=== PATIENT | female | born 2000 | race Hispanic/Latino ===

== ENCOUNTER 2019-02-01 15:48 | Emergency (ER) | payer SELFPAY ==
[2019-02-01 15:57] VITALS: BP 129/75
[2019-02-01] MEDS ORDERED: MOTRIN PO ONE (17:31)
[2019-02-01] MEDS ORDERED: DECADRON IM ONE (17:32)
--- NOTE | 2019-02-01 17:50 | Emergency Department Report ---
ED ENT HPI - General Chief complaint: Sore Throat Stated complaint: JJ/SWOLLEN TONSILS Time Seen by Provider: 02/01/19 17:31 Source: patient Mode of arrival: Ambulatory Limitations: No Limitations - History of Present Illness Initial comments: Pt is a 19 y/o w/f with hx or recurring strep who presents for sore throat and noc fever x 3 days pt is tolerating po intake, there is no temp max reported from home temp is 98.4 in triage today, pt has secondary concern for refill for zoloft pt denies SI or HI MD complaint: sore throat Onset/Timin -: days(s) Location: throat Severity: moderate Severity scale (0 -10): 5 Quality: burning, sharp Improves with: none Worsens with: swallowing Associated Symptoms: fever, pain with swallowing, sore throat - Related Data Previous Rx's Medication Instructions Recorded Last Taken Type Amoxicillin/Potassium Clav 1 each PO BID 10 Days #20 tablet 02/01/19 Unknown Rx [Augmentin 875-125 Tablet] Benzocaine/Mentho [Cepacol X 1 each MM Q2H PRN #3 packet 02/01/19 Unknown Rx Strength] Ibuprofen [Motrin 800 MG tab] 800 mg PO Q8HR PRN #30 tablet 02/01/19 Unknown Rx dexAMETHasone [Decadron] 4 mg PO BID 3 Days #6 tablet 02/01/19 Unknown Rx Allergies Allergy/AdvReac Type Severity Reaction Status Date / Time No Known Allergies Allergy Unverified 02/01/19 15:51 ED Dental HPI - General Chief complaint: Sore Throat Stated complaint: JJ/SWOLLEN TONSILS Time Seen by Provider: 02/01/19 17:31 Source: patient Mode of arrival: Ambulatory Limitations: No Limitations - Related Data Previous Rx's Medication Instructions Recorded Last Taken Type Amoxicillin/Potassium Clav 1 each PO BID 10 Days #20 tablet 02/01/19 Unknown Rx [Augmentin 875-125 Tablet] Benzocaine/Mentho [Cepacol X 1 each MM Q2H PRN #3 packet 02/01/19 Unknown Rx Strength] Ibuprofen [Motrin 800 MG tab] 800 mg PO Q8HR PRN #30 tablet 02/01/19 Unknown Rx dexAMETHasone [Decadron] 4 mg PO BID 3 Days #6 tablet 02/01/19 Unknown Rx Allergies Allergy/AdvReac Type Severity Reaction Status Date / Time No Known Allergies Allergy Unverified 02/01/19 15:51 ED Review of Systems ROS: Stated complaint: JJ/SWOLLEN TONSILS Other details as noted in HPI Constitutional: fever. denies: chills Eyes: denies: eye pain, eye discharge, vision change ENT: throat pain Respiratory: denies: cough, shortness of breath, wheezing Cardiovascular: denies: chest pain, palpitations Endocrine: no symptoms reported Gastrointestinal: denies: abdominal pain, nausea, diarrhea Genitourinary: denies: urgency, dysuria, discharge Musculoskeletal: denies: back pain, joint swelling, arthralgia Skin: denies: rash, lesions Neurological: denies: headache, weakness, paresthesias Psychiatric: denies: anxiety, depression Hematological/Lymphatic: denies: easy bleeding, easy bruising ED Past Medical Hx - Past Medical History Previous Medical History?: Yes Hx Headaches / Migraines: Yes - Surgical History Past Surgical History?: No - Social History Smoking Status: Current Every Day Smoker Substance Use Type: Alcohol, Marijuana, Prescribed - Medications Home Medications: Home Medications Medication Instructions Recorded Confirmed Last Taken Type Amoxicillin/Potassium Clav 1 each PO BID 10 Days #20 tablet 02/01/19 Unknown Rx [Augmentin 875-125 Tablet] Benzocaine/Mentho [Cepacol X 1 each MM Q2H PRN #3 packet 02/01/19 Unknown Rx Strength] Ibuprofen [Motrin 800 MG tab] 800 mg PO Q8HR PRN #30 tablet 02/01/19 Unknown Rx dexAMETHasone [Decadron] 4 mg PO BID 3 Days #6 tablet 02/01/19 Unknown Rx ED Physical Exam - General Limitations: No Limitations General appearance: alert, in no apparent distress - Head Head exam: Present: atraumatic, normocephalic - Eye Eye exam: Present: normal appearance, PERRL, EOMI Pupils: Present: normal accommodation - ENT ENT exam: Present: mucous membranes moist, TM's normal bilaterally, normal external ear exam, other (bilat maxillary sinus tenderness to palpation no swelling no erythema ). Absent: normal orophraynx - Expanded ENT Exam Expanded Ear exam: Present: normal external inspection TM/Canal exam: Canal Tenderness: Right TM, Left TM Mouth exam: Absent: trismus Throat exam: Positive: tonsillar erythema, tonsillomegaly, tonsillar exudate, other (uvula midline no stridor mild white tonsilar exudate no peritonsilar abscess no wheezing ). Negative: R peritonsillar mass, L peritonsillar mass - Neck Neck exam: Present: normal inspection, tenderness (mild lymph tendern), full ROM, lymphadenopathy. Absent: meningismus, thyromegaly - Expanded Neck Exam Expanded Neck exam: Present: tenderness (no posterior vertebral point tenderness ). Absent: midline deformity, anterior neck swelling, thyroid mass, carotid bruit, tracheal deviation - Respiratory Respiratory exam: Present: normal lung sounds bilaterally. Absent: respiratory distress, wheezes, stridor, chest wall tenderness - Cardiovascular Cardiovascular Exam: Present: regular rate, normal rhythm, normal heart sounds. Absent: systolic murmur, diastolic murmur, rubs, gallop - GI/Abdominal GI/Abdominal exam: Present: soft, normal bowel sounds. Absent: distended, tenderness, guarding, rebound, rigid, bruit, hernia - Extremities Exam Extremities exam: Present: normal inspection, full ROM, normal capillary refill - Back Exam Back exam: Present: normal inspection, full ROM. Absent: tenderness, rash noted - Neurological Exam Neurological exam: Present: alert, oriented X3, CN II-XII intact, normal gait, reflexes normal - Psychiatric Psychiatric exam: Present: normal affect, normal mood - Skin Skin exam: Present: warm, dry, intact, normal color. Absent: rash ED Course Vital Signs 02/01/19 15:55 Temperature 98.4 F Pulse Rate 122 H Respiratory 20 Rate Blood Pressure 129/75 O2 Sat by Pulse 99 Oximetry ED Medical Decision Making - Medical Decision Making This is pharyngitis recurring plan: augmentin , ibuprofen, cepachol, follow up with psychiatry in 2 days for refill for zoloft pt denies hi no si no depression at this time. pt symptoms improved dc'd to home in stable condition at this time. Critical care attestation.: If time is entered above; I have spent that time in minutes in the direct care of this critically ill patient, excluding procedure time. ED Disposition Clinical Impression: Pharyngitis Qualifiers: Pharyngitis/tonsillitis etiology: unspecified etiology Qualified Code(s): J02.9 - Acute pharyngitis, unspecified Disposition: DC-01 TO HOME OR SELFCARE Is pt being admited?: No Does the pt Need Aspirin: No Condition: Stable Instructions: Pharyngitis (ED) Prescriptions: Amoxicillin/Potassium Clav [Augmentin 875-125 Tablet] 1 each PO BID 10 Days #20 tablet Benzocaine/Mentho [Cepacol X Strength] 1 each MM Q2H PRN #3 packet PRN Reason: Throat Pain dexAMETHasone [Decadron] 4 mg PO BID 3 Days #6 tablet Ibuprofen [Motrin 800 MG tab] 800 mg PO Q8HR PRN #30 tablet PRN Reason: pain fever [facility] [[facility] Care Provider[facility] - 3-5 Days TACOS FREGOSO MD [Staff Physician] - 3-5 Days [facility] [Outside] - 2-3 Days Forms: Work/School Release Form(ED) Time of Disposition: 18:09
[2019-02-01] MEDS ORDERED: AMOXICILLIN ORAL LIQD PO ONE (18:33)
== END 2019-02-01 18:16 | disposition home or self-care (01) ==
LOC: ED 15:48
DX: J02.9 Acute pharyngitis, unspecified (principal); F17.200 Nicotine dependence, unspecified, uncomplicated; F12.10 Cannabis abuse, uncomplicated; G43.909 Migraine, unspecified, not intractable, without status migrainosus
CPT/HCPCS: 96372; 99282; J1100

== ENCOUNTER 2020-03-14 17:23 | Emergency (ER) | payer SELFPAY ==
--- NOTE | 2020-03-14 21:31 | Emergency Department Report ---
- General Chief Complaint: Allergic Reaction Stated Complaint: SWOLLEN THROAT Time Seen by Provider: 03/14/20 21:15 Source: patient Mode of arrival: Ambulatory Limitations: No Limitations - History of Present Illness Initial Comments: Lamar is a 20-year-old female with a history of migraine headache and thyroid disease who presents with lip swelling. Left side of lip. No history of trauma. She denies use she does smoke tobacco. She denies use of illicit drugs. -: Gradual, days(s) (Several days) Location: other (Left lip swelling) Associated Symptoms: other (Left lip swelling) - Related Data Previous Rx's Medication Instructions Recorded Last Taken Type Amoxicillin/Potassium Clav 1 each PO BID 10 Days #20 tablet 02/01/19 Unknown Rx [Augmentin 875-125 Tablet] Benzocaine/Mentho [Cepacol X 1 each MM Q2H PRN #3 packet 02/01/19 Unknown Rx Strength] Ibuprofen [Motrin 800 MG tab] 800 mg PO Q8HR PRN #30 tablet 02/01/19 Unknown Rx dexAMETHasone [Decadron] 4 mg PO BID 3 Days #6 tablet 02/01/19 Unknown Rx Sulfamethoxazole/Trimethoprim 1 each PO BID 7 Days #14 tablet 03/14/20 Unknown Rx [Bactrim 400-80 mg Tablet] Allergies Allergy/AdvReac Type Severity Reaction Status Date / Time No Known Allergies Allergy Unverified 02/01/19 15:51 ED Review of Systems ROS: Stated complaint: SWOLLEN THROAT Other details as noted in HPI Constitutional: denies: fever, malaise Respiratory: denies: cough, shortness of breath Gastrointestinal: denies: abdominal pain, nausea, vomiting Skin: rash, lesions ED Past Medical Hx - Past Medical History Previous Medical History?: Yes Hx Headaches / Migraines: Yes Additional medical history: hypothyroid - Surgical History Past Surgical History?: No - Social History Smoking Status: Current Every Day Smoker Substance Use Type: Alcohol, Marijuana, Methamphetamines - Medications Home Medications: Home Medications Medication Instructions Recorded Confirmed Last Taken Type Amoxicillin/Potassium Clav 1 each PO BID 10 Days #20 tablet 02/01/19 Unknown Rx [Augmentin 875-125 Tablet] Benzocaine/Mentho [Cepacol X 1 each MM Q2H PRN #3 packet 02/01/19 Unknown Rx Strength] Ibuprofen [Motrin 800 MG tab] 800 mg PO Q8HR PRN #30 tablet 02/01/19 Unknown Rx dexAMETHasone [Decadron] 4 mg PO BID 3 Days #6 tablet 02/01/19 Unknown Rx Sulfamethoxazole/Trimethoprim 1 each PO BID 7 Days #14 tablet 03/14/20 Unknown Rx [Bactrim 400-80 mg Tablet] ED Physical Exam - General Limitations: No Limitations General appearance: alert, in no apparent distress - Head Head exam: Present: atraumatic, normocephalic - Eye Eye exam: Absent: scleral icterus, conjunctival injection - ENT ENT exam: Present: other (Left lower lobe: Slightly edematous with purulent ulcer surrounding erythema) - Respiratory Respiratory exam: Absent: respiratory distress - Neurological Exam Neurological exam: Present: alert, oriented X3 - Psychiatric Psychiatric exam: Absent: normal affect, normal mood - Skin Skin exam: Absent: warm, dry, intact, normal color ED Course Vital Signs 03/14/20 17:41 Temperature 98.6 F Pulse Rate 112 H Respiratory 20 Rate Blood Pressure 130/87 O2 Sat by Pulse 96 Oximetry ED Medical Decision Making - Medical Decision Making Lip abscess: Prescribed Bactrim Critical care attestation.: If time is entered above; I have spent that time in minutes in the direct care of this critically ill patient, excluding procedure time. ED Disposition Clinical Impression: Lip abscess Disposition: DC-01 TO HOME OR SELFCARE Is pt being admited?: No Does the pt Need Aspirin: No Condition: Stable Instructions: Abscess (ED) Additional Instructions: Please use heated compress 3 times a day. Prescriptions: Sulfamethoxazole/Trimethoprim [Bactrim 400-80 mg Tablet] 1 each PO BID 7 Days #14 tablet Referrals: WANDA BROWN MD [Staff Physician] - as needed
[2020-03-14 21:40] VITALS: BP 124/81
== END 2020-03-14 22:25 | disposition home or self-care (01) ==
LOC: ED 17:23
DX: K13.0 Diseases of lips (principal); G43.909 Migraine, unspecified, not intractable, without status migrainosus; F17.200 Nicotine dependence, unspecified, uncomplicated; F12.10 Cannabis abuse, uncomplicated; F15.10 Other stimulant abuse, uncomplicated; Z79.1 Long term (current) use of non-steroidal anti-inflammatories (NSAID); Z79.2 Long term (current) use of antibiotics; Z79.899 Other long term (current) drug therapy
CPT/HCPCS: 99282

== ENCOUNTER 2021-08-31 20:02 | Emergency (ER) | payer SELFPAY ==
[2021-08-31 20:06] VITALS: BP 157/79
--- NOTE | 2021-08-31 22:11 | Emergency Department Report ---
HPI - General Chief Complaint: Dental/Oral Time Seen by Provider: 08/31/21 22:03 - HPI HPI: 21-year-old female presents to the emergency department with a complaint of a 2 to 3-day history of pain in the mouth, inside of the cheeks, around the tongue, and a sore throat in which the patient feels like her tonsils are swollen. She says that she has increased pain that "feels like I have swallowed razor wire" every time she eats or drinks. Patient has a history of hypothyroidism and admits that she has been out of her medication for about 1 month and wonders if this could be related. She is on 75 mcg of levothyroxine daily. She tried gargling some peroxide without any relief. She denies any s fever, drooling, neck swelling, cough. ED Past Medical Hx - Past Medical History Previous Medical History?: Yes Hx Headaches / Migraines: Yes Additional medical history: hypothyroid - Surgical History Past Surgical History?: No - Social History Smoking Status: Current Every Day Smoker Substance Use Type: Alcohol, Marijuana, Methamphetamines - Medications Home Medications: Home Medications Medication Instructions Recorded Confirmed Last Taken Type Amoxicillin/Potassium Clav 1 each PO BID 10 Days #20 tablet 02/01/19 Unknown Rx [Augmentin 875-125 Tablet] Benzocaine/Mentho [Cepacol X 1 each MM Q2H PRN #3 packet 02/01/19 Unknown Rx Strength] Ibuprofen [Motrin 800 MG tab] 800 mg PO Q8HR PRN #30 tablet 02/01/19 Unknown Rx dexAMETHasone [Decadron] 4 mg PO BID 3 Days #6 tablet 02/01/19 Unknown Rx Sulfamethoxazole/Trimethoprim 1 each PO BID 7 Days #14 tablet 03/14/20 Unknown Rx [Bactrim 400-80 mg Tablet] Levothyroxine Sodium 75 mcg PO QDAY #30 cap 08/31/21 Unknown Rx [Levothyroxine] Nystas/Diphen/Xyl Visc/Mylanta 30 ml MM Q6H #300 ml 08/31/21 Unknown Rx [Magic Mouthwash] ED Review of Systems ROS: Stated complaint: MED REFILL Other details as noted in HPI Comment: All other systems reviewed and negative Constitutional: denies: chills, fever ENT: throat pain, other (Mouth pain) Respiratory: denies: cough, shortness of breath Cardiovascular: denies: chest pain, palpitations Gastrointestinal: denies: abdominal pain, vomiting Neurological: denies: headache, weakness Physical Exam - Physical Exam Vital Signs: Vital Signs 08/31/21 08/31/21 20:04 20:06 Temperature 98.6 F Pulse Rate 105 H Respiratory 17 Rate Blood Pressure 157/79 O2 Sat by Pulse 98 Oximetry Physical Exam: GENERAL: The patient is well-developed well-nourished. HENT: Normocephalic. Atraumatic. Patient has moist mucous membranes. Posterior pharynx is unremarkable including no tonsillar hypertrophy, erythema, or exudates. The patient has some aphthous ulcers to the inside of the cheeks and along the sides of the tongue. EYES: Extraocular motions are intact. NECK: Supple. Trachea is midline. No palpable lymphadenopathy. CHEST/LUNGS: Clear to auscultation. There is no respiratory distress noted. HEART/CARDIOVASCULAR: Regular. There is no tachycardia. There is no murmur. ABDOMEN: Abdomen is soft, nontender. Patient has normal bowel sounds. SKIN: Skin is warm and dry. NEURO: The patient is awake, alert, and oriented. The patient is cooperative. Normal speech. MUSCULOSKELETAL: There is no tenderness or deformity. There is no limitation range of motion. ED Course Vital Signs 08/31/21 08/31/21 20:04 20:06 Temperature 98.6 F Pulse Rate 105 H Respiratory 17 Rate Blood Pressure 157/79 O2 Sat by Pulse 98 Oximetry ED Medical Decision Making - Medical Decision Making This patient presents to the emergency department with complaint of pain inside of her mouth with some sores, a sore throat, and medication noncompliance with her levothyroxine. She does not appear to have any tonsillar hypertrophy, erythema or exudates. There are some aphthous ulcers or mucositis seen to the inner cheeks, and around her tongue. She does not appear to have any emergency condition that requires a medical admission at this time. She will be placed on Magic mouthwash and given a prescription for her levothyroxine. She has been given outpatient referrals for primary care. Critical Care Time: No Critical care attestation.: If time is entered above; I have spent that time in minutes in the direct care of this critically ill patient, excluding procedure time. ED Disposition Clinical Impression: History of hypothyroidism, Aphthous ulcer of mouth Pharyngitis Qualifiers: Pharyngitis/tonsillitis etiology: unspecified etiology Qualified Code(s): J02.9 - Acute pharyngitis, unspecified Disposition: HOME / SELF CARE / HOMELESS Is pt being admited?: No Condition: Stable Instructions: Pharyngitis, Oral Mucositis, Canker Sores Additional Instructions: Please follow-up with a primary care physician in the next few days. I have given you a referral for a local primary care physician, Dr. Dillon, and a primary care clinic, [facility]. I am restarting you on your levothyroxine. Please make sure to follow-up with a primary care physician for TSH/thyroid check and for reevaluation of your mouth pain. Return to the emergency department with any worsening of your symptoms, new or concerning symptoms not addressed during this current emergency department visit, or with any acute distress. Prescriptions: Levothyroxine Sodium [Levothyroxine] 75 mcg PO QDAY #30 cap Nystas/Diphen/Xyl Visc/Mylanta [Magic Mouthwash] 30 ml MM Q6H #300 ml Referrals: PRIMARY MD HEIDI [Primary Care Provider] - 3-5 Days WANDA DILLON MD [Staff Physician] - 3-5 Days [facility] [Provider Group] - 3-5 Days Time of Disposition: 22:12
== END 2021-08-31 22:25 | disposition home or self-care (01) ==
LOC: ED 20:02
DX: K12.0 Recurrent oral aphthae (principal); J02.9 Acute pharyngitis, unspecified; E03.9 Hypothyroidism, unspecified; G43.909 Migraine, unspecified, not intractable, without status migrainosus; F17.200 Nicotine dependence, unspecified, uncomplicated; F12.10 Cannabis abuse, uncomplicated; F15.10 Other stimulant abuse, uncomplicated
CPT/HCPCS: 99282